=== PATIENT | female | born 1970 | race Caucasian/White ===

== ENCOUNTER 2020-05-04 01:47 | Inpatient (IN) | payer OTHER ==
[2020-05-04] MEDS ORDERED: SODIUM CHLORIDE 0.9% 500 ML 500 ML IV STA (02:02)
[2020-05-04] MEDS ORDERED: SODIUM CHLORIDE 0.9% 1,000 ML IV STA ×2 (02:02)
--- NOTE | 2020-05-04 02:04 | ED ---
Alcohol HPI - General Chief Complaint: Alcohol Stated Complaint: Altered Mental Status Time Seen by Provider: 05/04/20 02:01 Source: patient, EMS Mode of arrival: EMS Limitations: no limitations - Related Data Allergies Allergy/AdvReac Type Severity Reaction Status Date / Time No Known Allergies Allergy Verified 05/04/20 01:55 Review of Systems ROS Statement: Those systems with pertinent positive or pertinent negative responses have been documented in the HPI. ROS Other: All systems not noted in ROS Statement are negative. Past Medical History Past Medical History: No Reported History History of Any Multi-Drug Resistant Organisms: None Reported Past Surgical History: Section Past Psychological History: No Psychological Hx Reported Smoking Status: Current every day smoker Past Alcohol Use History: Abuse, Daily, Heavy Past Drug Use History: None Reported General Exam Limitations: no limitations Course Vital Signs 05/04/20 01:57 Temperature 97.9 F Pulse Rate 89 Respiratory 16 Rate Blood Pressure 136/81 O2 Sat by Pulse 100 Oximetry Medical Decision Making - Lab Data Result diagrams: 05/04/20 02:21 05/04/20 02:21 Lab Results 05/04/20 05/04/20 05/04/20 Range/Units 02:21 02:21 02:21 WBC 3.9 (3.8-10.6) k/uL RBC 3.33 L (3.80-5.40) m/uL Hgb 9.6 L (11.4-16.0) gm/dL Hct 29.4 L (34.0-46.0) % MCV 88.5 (80.0-100.0) fL MCH 28.9 (25.0-35.0) pg MCHC 32.7 (31.0-37.0) g/dL RDW 18.6 H (11.5-15.5) % Plt Count 80 L (150-450) k/uL MPV 9.5 Neutrophils % 67 % Lymphocytes % 20 % Monocytes % 7 % Eosinophils % 3 % Basophils % 0 % Neutrophils # 2.6 (1.3-7.7) k/uL Lymphocytes # 0.8 L (1.0-4.8) k/uL Monocytes # 0.3 (0-1.0) k/uL Eosinophils # 0.1 (0-0.7) k/uL Basophils # 0.0 (0-0.2) k/uL Hypochromasia Marked Anisocytosis Slight PT 11.1 (9.0-12.0) sec INR 1.0 (<1.2) APTT 23.8 (22.0-30.0) sec Sodium 133 L (137-145) mmol/L Potassium 3.7 (3.5-5.1) mmol/L Chloride 102 (98-107) mmol/L Carbon Dioxide 23 (22-30) mmol/L Anion Gap 8 mmol/L BUN 8 (7-17) mg/dL Creatinine 0.54 (0.52-1.04) mg/dL Est GFR (CKD-EPI)AfAm >90 (>60 ml/min/1.73 sqM) Est GFR (CKD-EPI)NonAf >90 (>60 ml/min/1.73 sqM) Glucose 86 (74-99) mg/dL Plasma Lactic Acid Otis (0.7-2.0) mmol/L Calcium 8.9 (8.4-10.2) mg/dL Phosphorus 4.3 (2.5-4.5) mg/dL Magnesium 1.6 (1.6-2.3) mg/dL Total Bilirubin 0.6 (0.2-1.3) mg/dL AST 56 H (14-36) U/L ALT 28 (4-34) U/L Alkaline Phosphatase 74 (38-126) U/L Creatine Kinase 64 (30-135) U/L Troponin I (0.000-0.034) ng/mL Total Protein 6.2 L (6.3-8.2) g/dL Albumin 3.7 (3.5-5.0) g/dL Lipase 180 (23-300) U/L Serum Alcohol <10 mg/dL Acetone, Qual Positive (Negative) 05/04/20 05/04/20 Range/Units 02:21 02:21 WBC (3.8-10.6) k/uL RBC (3.80-5.40) m/uL Hgb (11.4-16.0) gm/dL Hct (34.0-46.0) % MCV (80.0-100.0) fL MCH (25.0-35.0) pg MCHC (31.0-37.0) g/dL RDW (11.5-15.5) % Plt Count (150-450) k/uL MPV Neutrophils % % Lymphocytes % % Monocytes % % Eosinophils % % Basophils % % Neutrophils # (1.3-7.7) k/uL Lymphocytes # (1.0-4.8) k/uL Monocytes # (0-1.0) k/uL Eosinophils # (0-0.7) k/uL Basophils # (0-0.2) k/uL Hypochromasia Anisocytosis PT (9.0-12.0) sec INR (<1.2) APTT (22.0-30.0) sec Sodium (137-145) mmol/L Potassium (3.5-5.1) mmol/L Chloride (98-107) mmol/L Carbon Dioxide (22-30) mmol/L Anion Gap mmol/L BUN (7-17) mg/dL Creatinine (0.52-1.04) mg/dL Est GFR (CKD-EPI)AfAm (>60 ml/min/1.73 sqM) Est GFR (CKD-EPI)NonAf (>60 ml/min/1.73 sqM) Glucose (74-99) mg/dL Plasma Lactic Acid Otis 0.5 L (0.7-2.0) mmol/L Calcium (8.4-10.2) mg/dL Phosphorus (2.5-4.5) mg/dL Magnesium (1.6-2.3) mg/dL Total Bilirubin (0.2-1.3) mg/dL AST (14-36) U/L ALT (4-34) U/L Alkaline Phosphatase (38-126) U/L Creatine Kinase (30-135) U/L Troponin I <0.012 (0.000-0.034) ng/mL Total Protein (6.3-8.2) g/dL Albumin (3.5-5.0) g/dL Lipase (23-300) U/L Serum Alcohol mg/dL Acetone, Qual (Negative) - EKG Data -: EKG Interpreted by Me (EKG shows sinus rhythm 82 MN 128 QRS 84 QTc 474) Disposition Clinical Impression: Alcohol withdrawal delirium, Delirium, Medication reaction Disposition: [facility] Condition: Good Is patient prescribed a controlled substance at d/c from ED?: No Referrals: None,Stated [Primary Care Provider] - 1-2 days
[2020-05-04 02:47] LABS: Anisocytosis Slight; Basophils % (A) 0 %; Eosinophils # (A) 0.1 k/uL (0-0.7); Eosinophils % (A) 3 %; HCT 29.4 % (34.0-46.0); HGB 9.6 gm/dL (11.4-16.0); Hypochromasia Marked; Lymphocytes # (A) 0.8 k/uL (1.0-4.8); Lymphocytes % (A) 20 %; MCH 28.9 pg (25.0-35.0); MCHC 32.7 g/dL (31.0-37.0); MCV 88.5 fL (80.0-100.0); Mean Platelet Volume 9.5; Monocytes # (A) 0.3 k/uL (0-1.0); Monocytes % (A) 7 %; Neutrophils # (A) 2.6 k/uL (1.3-7.7); Neutrophils % (A) 67 %; RBC 3.33 m/uL (3.80-5.40); RDW 18.6 % (11.5-15.5); WBC 3.9 k/uL (3.8-10.6)
[2020-05-04 03:00] LABS: Platelet Count 80 k/uL (150-450)
[2020-05-04 03:01] LABS: ALT 28 U/L (4-34); AST 56 U/L (14-36); African American GFR (CKD) >90 (>60 ml/min/1.73 sqM); Albumin 3.7 g/dL (3.5-5.0); Alcohol <10 mg/dL; Alkaline Phosphatase 74 U/L (38-126); Anion Gap 8 mmol/L; Blood Urea Nitrogen 8 mg/dL (7-17); Calcium 8.9 mg/dL (8.4-10.2); Carbon Dioxide 23 mmol/L (22-30); Chloride 102 mmol/L (98-107); Creatine Kinase 64 U/L (30-135); Glucose 86 mg/dL (74-99); Lipase 180 U/L (23-300); Magnesium 1.6 mg/dL (1.6-2.3); Non-African American GFR(CKD) >90 (>60 ml/min/1.73 sqM); Phosphorus 4.3 mg/dL (2.5-4.5); Potassium 3.7 mmol/L (3.5-5.1); Sodium 133 mmol/L (137-145); Total Bilirubin 0.6 mg/dL (0.2-1.3); Total Protein 6.2 g/dL (6.3-8.2)
--- NOTE | 2020-05-04 03:07 | CT ---
EXAM: CT Head Without Intravenous Contrast CLINICAL HISTORY: ITS.REASON CT Reason: ams TECHNIQUE: Axial computed tomography images of the head/brain without intravenous contrast. CTDI is 49.27 mGy and DLP is 1141.4 mGy-cm. This CT exam was performed using one or more of the following dose reduction techniques: automated exposure control, adjustment of the mA and/or kV according to patient size, and/or use of iterative reconstruction technique. COMPARISON: No relevant prior studies available. FINDINGS: Brain: Unremarkable. No hemorrhage. No significant white matter disease. No edema. Ventricles: Unremarkable. No ventriculomegaly. Bones/joints: Unremarkable. No acute fracture. Soft tissues: Unremarkable. Sinuses: Unremarkable as visualized. No acute sinusitis. Mastoid air cells: Unremarkable as visualized. No mastoid effusion. IMPRESSION: No acute intracranial process.
[2020-05-04] MEDS ORDERED: DIAZEPAM 5 MG/ML 2 ML INJ IVP STA (03:19)
[2020-05-04 03:20] LABS: Partial Thromboplastin Time 23.8 sec (22.0-30.0); Prothrombin Time 11.1 sec (9.0-12.0)
[2020-05-04] MEDS ORDERED: diphenhydrAMINE 2% CREAM 28.4 GM TUBE TOPICAL STA (03:42)
[2020-05-04] MEDS ORDERED: LORazepam 2 MG/ML INJ IV STA ×2 (04:05→04:29)
[2020-05-04] MEDS ORDERED: THIAMINE 100 MG/ML 2 ML VIAL IM STA ×2 (04:29→11:17)
[2020-05-04] MEDS ORDERED: PHENobarbital SODIUM 130 MG/ML 1 ML VIAL IM STA (04:29)
[2020-05-04] MEDS ORDERED: NALOXONE 0.4 MG/ML 1 ML VIAL IV PRN (04:30)
[2020-05-04] MEDS ORDERED: ONDANSETRON 4 MG/2 ML VIAL IVP PRN (04:30)
[2020-05-04] MEDS ORDERED: diphenhydrAMINE 50 MG/ML 1 ML VIAL IVP STA (05:20)
[2020-05-04] MEDS ORDERED: ZIPRASIDONE 20 MG VIAL IM ONE (05:30)
[2020-05-04] MEDS ORDERED: HALOPERIDOL LACTATE 5 MG/ML 1 ML VIAL IM PRN (11:17)
[2020-05-04] MEDS ORDERED: LORazepam 2 MG/ML INJ IV PRN ×3 (11:17)
[2020-05-04] MEDS ORDERED: HYDROcodone/APAP 5-325MG 1 EACH TAB PO PRN (12:44)
[2020-05-04] MEDS ORDERED: TEMAZEPAM 15 MG CAP PO PRN (12:44)
--- NOTE | 2020-05-04 13:59 | P.CN ---
Psychiatric Consult - . Consult date: 05/04/20 Consult:: IDENTIFYING DATA: This patient is a single, unemployed 50-year-old female admitted for altered mental status REASON FOR CONSULT: Altered Mental Status HISTORY OF PRESENT ILLNESS: At this time, it is difficult to obtain a clear history from this patient. This provider attempted to obtain collateral information from the patient's mother and boyfriend but has been unable to as he is only able to reach voicemail. The patient was reportedly at [facility] for alcohol rehab but began acting strangely and was subsequent transferred to this emergency department. The patient reports that she was drinking anywhere from a pint to a half gallon of hard liquor daily and abruptly stopped her alcohol use 04/30/2020. The patient has been noted to be agitated and altered while in the ED requiring multiple IM medications. CIWA scores of 19 and 30. The patient reported a history of previous withdrawal symptoms including tremors but denied any previous history of hallucinations. She is currently endorsing visual hallucinations. She states that she sees a shopping cart in front of her by the curtains. She does not report any auditory hallucinations. She denies any suicidal or homicidal ideation, intention, and/or plan. She is unable to provide any further history due to being altered. PAST PSYCHIATRIC HISTORY: Unable to obtain at this time. The patient's home medications include trazodone and Catapres. PAST MEDICAL HISTORY: Past Medical History: No Reported History History of Any Multi-Drug Resistant Organisms: None Reported Past Surgical History: Section Past Psychological History: No Psychological Hx Reported Smoking Status: Current every day smoker Past Alcohol Use History: Abuse, Daily, Heavy Past Drug Use History: None Reported ALLERGIES: as per EMR. CHEMICAL DEPENDENCY HISTORY: The patient reports that she has been drinking a pint to a half gallon of hard liquor and abruptly stopped drinking on 04/30/2020. Unable to obtain any further chemical dependency history. FAMILY PSYCHIATRIC/SUBSTANCE USE HISTORY: Unable to obtain at this time. SOCIAL HISTORY: Unable to obtain at this time. MENTAL STATUS EXAM: General Appearance: Patient appears malaised, dressed in a hospital gown, and is unable to cooperate despite attempting to. Behavior: Patient is lying down in bed with mild tremor of her upper extremities. Speech: Patient's speech is nonspontaneous, low in volume, incoherent. Mood/Affect: Unable to assess mood. Affect is malaised. Suicidality/Homicidality: Patient denies having any suicidal or homicidal ideation intent or plan. Perceptions: Patient endorses visual hallucinations but no auditory hallucinations. Though content/process: Unable to assess. Patient is grossly disorganized. Memory and concentration: Patient is alert and oriented to person and place only. Concentration is poor. Judgment and insight: Very Poor Vital Signs Temp 97.9 F 05/04/20 01:57 Pulse 110 H 05/04/20 05:00 Resp 18 05/04/20 05:00 BP 118/92 05/04/20 05:00 Pulse Ox 97 05/04/20 05:00 Intake & Output 05/03/20 05/04/20 05/04/20 18:59 06:59 18:59 Weight 61.235 kg IMPRESSIONS: Altered mental status - Likely from severe alcohol withdrawal with Delirium Tremens. - Patient's onset of visual hallucinations and delirium are consistent with DTs as the patient reported abruptly stopping alcohol this past Sunday. CIWA scores are elevated 19-30. Vitals with tachycardia. PLAN: -At this time patient DOES [NOT] meet criteria for inpatient psychiatric admission. -Recommend ICU or medical admission for severe Alcohol Withdrawal. -Would recommend the following medication changes/additions: Start Librium 50 mg 4 times daily for alcohol withdrawal. Continue CIWA protocol with ativan PRN. Continue Thiamine, start multivitamin 05/04/20 13:31
--- NOTE | 2020-05-04 14:10 | XR ---
EXAMINATION TYPE: XR chest 1V portable DATE OF EXAM: 05/04/2020 COMPARISON: None INDICATION: Pneumonia TECHNIQUE: Single frontal view of the chest is obtained. FINDINGS: The heart size is normal. The pulmonary vasculature is normal. The lungs are clear. IMPRESSION: 1. No acute pulmonary process.
--- NOTE | 2020-05-04 14:12 | HP ---
HISTORY AND PHYSICAL DATE OF SERVICE: 05/04/2020 CHIEF COMPLAINT: Change in mental status and alcohol. HISTORY OF PRESENT ILLNESS: This 50-year-old woman with a past medical history of no significant medical issues except a section being followed by no primary physician in the outpatient setting had significant issues with alcohol. The patient apparently taking large quantity of alcohol and the patient was admitted with change in mental status. The patient was acutely delirious. The patient is on CIWA protocol. Despite CIWA protocol, the patient was combative, restless, and the patient was given Geodon and Haldol was also being planned. Psychiatric consultation in progress at this time. The initial evaluation with hemoglobin 9.6 and platelets 80. Otherwise, the CT of the brain was also done which shows no acute intracranial process. COVID-19 was negative, but serum acetone was positive indicating alcoholic ketoacidosis. Patient admitted for further evaluation and treatment. There is no history of any fever. Detailed history cannot be taken from the patient because of change in mental status, most of the history taken by my discussion with staff and as well as review of the chart at this time. PAST MEDICAL HISTORY: History of section. MEDICATIONS: Medications are per chart: 1. Trazodone. 2. Chlor-Trimeton. 3. Catapres. 4. Motrin. 5. Tylenol. 6. Zofran. 7. Multivitamins. Doses are reviewed. ALLERGIES: None. FAMILY HISTORY, SOCIAL HISTORY AND REVIEW OF SYSTEMS: Could not be taken because of change in mental status. PHYSICAL EXAMINATION: Patient is stuporous, arousable, confused. Pulse 110, blood pressure 118/92, respiration 18, temperature 97.9, pulse ox 97% on room air. HEENT: Conjunctivae normal. Oral mucosa moist. NECK: No jugular venous distention. No carotid bruit. No lymph node enlargement. CARDIOVASCULAR: S1, S2 muffled. No S3, no S4. RESPIRATORY: Breath sounds diminished at the bases. A few rhonchi, no crackles. ABDOMEN: Soft, nontender. LEGS: No edema, no swelling. NERVOUS SYSTEM: A full exam cannot be done. Mild diffuse tremors present. SKIN: No ulcer, rash or bleeding. JOINTS: No active deforming arthropathy. LABS: WBC 3.9, hemoglobin 9.6 and sodium is 133, potassium 3.7, and COVID-19 is negative. Other labs are noted. ASSESSMENT: 1. Change in mental status acute metabolic encephalopathy secondary from alcohol intoxication. 2. Acute delirium tremens. 3. Hyponatremia. 4. Thrombocytopenia. 5. Elevated AST, possibly secondary to alcoholic hepatitis. 6. Anemia possibly secondary to nutritional anemia. 7. History of section. RECOMMENDATIONS AND DISCUSSION: This 50-year-old woman who presented with multiple complex medical issues, we will continue to monitor the patient. We will continue the CIWA protocol. Currently the patient is slightly less agitated after the Geodon. I would recommend Halniraj p.r.n. Psychiatric consultation. If the CIWA protocol remains, the patient might need to be transferred to ICU for further close monitoring at this time. Otherwise, supplementary medications ordered and home medication will be reviewed and I would also recommend a chest x-ray to complete the workup and repeat labs will be ordered. The patient also possibly had mild alcoholic hepatitis also please also had. Once again, the prognosis guarded. Further recommendations to follow. MMBARBIL / IJN: [id number] /
[2020-05-04] MEDS ORDERED: SODIUM CHLORIDE 0.9% 1,000 ML with MVI, ADULT NO.4 WITH VIT K 10 ML, THIAMINE 100 MG, F... IV ONE ×4 (15:00)
[2020-05-04] MEDS ORDERED: PHENobarbitaL 16.2 MG TAB PO ONE ×2 (16:30→20:30)
[2020-05-04] MEDS: THIAMINE 100 MG TAB PO SCH ×2 (17:36→17:37)
[2020-05-04] MEDS: PANTOPRAZOLE 40 MG/10 ML VIAL IVP SCH (17:36)
[2020-05-04] MEDS: DEXTROSE 5%-0.45% NACL 1,000 ML IV SCH (17:36)
[2020-05-04] MEDS: chlordiazePOXIDE 25 MG CAP PO SCH (20:05)
[2020-05-04] MEDS: HEPARIN SODIUM,PORCINE 5,000 UNIT/ML 1 ML VIAL SQ SCH (20:06)
[2020-05-05] MEDS: chlordiazePOXIDE 25 MG CAP PO SCH ×3 (00:12→12:54)
[2020-05-05] MEDS: DEXTROSE 5%-0.45% NACL 1,000 ML IV SCH ×2 (02:29→13:55)
[2020-05-05 04:42] LABS: Appearance,Urine Clear (Clear); Bacteria,Urine Occasional /hpf; Bilirubin,Urine Negative (Negative); Blood,Urine Negative (Negative); Color,Urine Light Yellow; Glucose,Urine (UA) Negative (Negative); Ketones,Urine Negative (Negative); Leukocyte Esterase,Urine Moderate (Negative); Mucus,Urine Rare /hpf; Nitrite,Urine Positive (Negative); Protein,Urine Negative (Negative); RBC,Urine 1 /hpf (0-5); Specific Gravity,Urine 1.007 (1.001-1.035); Squamous Epithelial Cell,Urine 1 /hpf (0-4); Urobilinogen,Urine <2.0 mg/dL (<2.0); WBC,Urine 19 /hpf (0-5)
[2020-05-05 05:08] LABS: Amphetamine Screen,Urine Not Detected (NotDetected); Barbiturate Screen,Urine Not Detected (NotDetected); Benzodiazepines Screen,Urine Detected (NotDetected); Cocaine Screen,Urine Not Detected (NotDetected); Methadone Screen, Urine Not Detected (NotDetected); Opiate Screen,Urine Not Detected (NotDetected); Oxycodone Screen, Urine Not Detected (NotDetected); Phencyclidine Screen,Urine Not Detected (NotDetected); Tricyclic Antidepressant,Urine Not Detected (NotDetected); Urn Cannabinoid Scrn Not Detected (NotDetected)
[2020-05-05 07:11] LABS: ALT 31 U/L (4-34); AST 63 U/L (14-36); African American GFR (CKD) >90 (>60 ml/min/1.73 sqM); Albumin/Globulin Ratio 1.2; Alkaline Phosphatase 63 U/L (38-126); Anion Gap 7 mmol/L; Blood Urea Nitrogen 5 mg/dL (7-17); Calcium 8.4 mg/dL (8.4-10.2); Carbon Dioxide 24 mmol/L (22-30); Chloride 104 mmol/L (98-107); Globulin 2.5 g/dL; Glucose 103 mg/dL (74-99); Magnesium 1.6 mg/dL (1.6-2.3); Non-African American GFR(CKD) >90 (>60 ml/min/1.73 sqM); Potassium 3.8 mmol/L (3.5-5.1); Sodium 135 mmol/L (137-145); Total Bilirubin 0.4 mg/dL (0.2-1.3); Total Protein 5.5 g/dL (6.3-8.2)
[2020-05-05] MEDS ORDERED: MULTIVITAMINS, THERA 1 EACH TAB PO SCH (09:00)
[2020-05-05] MEDS: HEPARIN SODIUM,PORCINE 5,000 UNIT/ML 1 ML VIAL SQ SCH (09:40)
[2020-05-05] MEDS: THIAMINE 100 MG TAB PO SCH ×2 (09:41→12:57)
[2020-05-05] MEDS: PANTOPRAZOLE 40 MG/10 ML VIAL IVP SCH (09:41)
[2020-05-05] MEDS ORDERED: NICOTINE 14MG/24HR PATCH TRANSDERM SCH (10:30)
[2020-05-05 11:38] VITALS: BP 122/78; PULSE 85; RESP 20; TEMP 98.5
[2020-05-05 12:10] LABS: Basophils # (A) 0.03 X 10*3/uL (0.00-0.10); Basophils % (A) 0.7 %; Eosinophils # (A) 0.12 X 10*3/uL (0.04-0.35); Eosinophils % (A) 2.9 %; HCT 29.6 % (37.2-46.3); HGB 8.6 g/dL (12.0-15.0); Lymphocytes # (A) 0.99 X 10*3/uL (0.90-5.00); Lymphocytes % (A) 23.5 %; MCHC 29.1 g/dL (32.0-37.0); MCV 93.1 fL (80.0-97.0); Mean Platelet Volume 12.4 fL (9.5-12.2); Monocytes # (A) 0.44 X 10*3/uL (0.20-1.00); Monocytes % (A) 10.5 %; Neutrophils # (A) 2.61 X 10*3/uL (1.80-7.70); Neutrophils % (A) 61.9 %; Platelet Count 89 X 10*3/uL (140-440); RBC 3.18 X 10*6/uL (4.10-5.20); RDW 19.4 % (11.5-14.5); WBC 4.21 X 10*3/uL (4.50-10.00)
--- NOTE | 2020-05-05 13:41 | P.PN ---
Progress Note - Text Progress Note Date: 05/05/20 Interval History: Patient was seen at bedside. The patient is reporting is feeling much better. She is currently alert and oriented in all spheres. She is calm and cooperative during the interview and is able to respond to questions appropriately. She reports that she was able to sleep well and reports a decent appetite. She is currently not reporting any suicidal or homicidal ideation, intention, and/or plan. She is denying any auditory or visual hallucinations. She denies any paranoia or other delusions. She reports that she has a desire to quit alcohol and has been trying to go to [facility] for rehabilitation. Mental Status Exam: General Appearance: Patient appears to be stated age is alert, directable, and cooperative. Fair hygiene and grooming. Behavior: Patient is calmly seated in bed without any agitated behavior. Speech: Patient's speech is fluent and nonpressured. Mood/Affect: Mood is "feeling a lot better," affect is congruent, euthymic, and with appropriate range. Suicidality/Homicidality: Patient denies having any suicidal or homicidal ideation intent or plan. Perceptions: Patient denies any visual hallucinations and denies any auditory hallucinations Though content/process: There is no evidence of any delusional thought content and thought process is linear and goal-directed. Memory and concentration: AOX3, grossly intact for the purposes of this session Judgment and insight: Improved Assessment Alcohol use disorder Plan: -At this time patient DOES NOT meet criteria for inpatient psychiatric admission. -Stable for discharge from a psychiatric standpoint. Patient at this time does not present with immediate risk of harm to self or others. She is at chronically higher risk of self harm compared to the general population due to her heavy alcohol use. -Psychiatry will sign off at this point. Thank you for this consult.
--- NOTE | 2020-05-06 10:18 | DS ---
DISCHARGE SUMMARY DATE OF SERVICE: 05/05/2020 FINAL DIAGNOSES: 1. Change in mental status and acute metabolic encephalopathy secondary to alcohol intoxication. 2. Acute delirium tremens. 3. Hyponatremia. 4. Thrombocytopenia. 5. Elevated AST, possibly secondary to alcoholic hepatitis. 6. Anemia possibly secondary to nutrition anemia. 7. History of section. DISCHARGE DISPOSITION: The patient will be discharged in stable condition with guarded prognosis. HISTORY OF PRESENT ILLNESS: This 50-year-old woman with a past medical history of multiple medical problems admitted with change in mental status and alcohol intoxication, delirium tremens, treated symptomatically. Patient improved significantly. Psychiatry saw the patient. On exam, vitals are stable. CARDIOVASCULAR: S1, S2 muffled. ABDOMEN: Soft. NERVOUS SYSTEM: No focal deficits. Labs are reviewed and recommend close followup in the outpatient setting. Hemoglobin is 8.6. DISCHARGE ADVICE: 1. Diet is cardiac. 2. Activity limited until followup. 3. Follow up with Dr. Kramer in 1 week. 4. No EtOH. 5. Follow up labs CBC, BMP in the outpatient setting. Medications are: 1. Chlorpheniramine as mentioned earlier. 2. Motrin p.r.n. 3. Multivitamins 1 p.o. daily. 4. Tigan p.r.n. 5. Trazodone 50-150 mg p.o. daily. 6. Tylenol p.r.n. 7. Zofran 8 mg p.r.n. 8. Catapres 0.1 p.o. b.i.d. 9. Folic acid 1 mg p.o. daily. 10.Librium 50 mg t.i.d. 11.Thiamine 100 mg p.o. daily. Once again, the patient will be discharged in a stable condition with guarded prognosis. MMODL / IJN: [id number] /
== END 2020-05-05 14:00 | disposition home or self-care (01) | DRG 896 ==
LOC: EC 01:47 → 5NMEDONC 04:30
PROVIDERS: ADMIT Hospitalist; ATTEND Hospitalist
DX: F10.231 Alcohol dependence with withdrawal delirium (principal); G93.41 Metabolic encephalopathy; E87.1 Hypo-osmolality and hyponatremia; E87.2 Acidosis; Z20.822 Contact with and (suspected) exposure to COVID-19; D69.6 Thrombocytopenia, unspecified; F10.229 Alcohol dependence with intoxication, unspecified; K70.10 Alcoholic hepatitis without ascites; D64.9 Anemia, unspecified; F17.200 Nicotine dependence, unspecified, uncomplicated; Z98.891 History of uterine scar from previous surgery
CPT/HCPCS: 36415; 70450; 71045; 80053; 80306; 80320; 81001; 82009; 82550; 83605; 83690; 83735; 84100; 84484; 85025; 85610; 85730; 87635; 93005; 96361; 96372; 96374; 96375; 99285

== ENCOUNTER 2021-08-25 22:04 | Emergency (ER) | payer OTHER ==
[2021-08-25 22:08] VITALS: BP 147/91; PULSE 97; RESP 18; TEMP 97.5
--- NOTE | 2021-08-25 22:41 | ED ---
Abdominal Pain HPI - General Chief Complaint: Abdominal Pain Stated Complaint: Bloating, diarrhea Time Seen by Provider: 08/25/21 22:11 Source: patient, family, RN notes reviewed Mode of arrival: ambulatory Limitations: no limitations - History of Present Illness Initial Comments: Patient is a 51-year-old female presents to the emergency room with complaints of worsening abdominal swelling. She reports that she was under the impression that she was possibly significantly constipated however she reports having regular bowel movements including bowel movements that are both solid and diarrhea at times. She is taking MiraLAX daily along with laxatives as needed and has noticed no improvement in her abdominal girth which is slowly increasin g. She states that approximately 2 months ago she lost some weight and then approximately one month ago her belly slowly started to get a cure. She does report drinking daily hard liquor approximately apparent height to a fifth a day including her last drink today of 1 pint of liquor. She reports that she had a brother from hepatic failure secondary to alcoholism. She states that he approximately 4 years ago and she is aware that she has been drinking daily since his . She has attempted to quit drinking in the past few going to [place] but has been unsuccessful. She does admit to having mild yellowing of her skin. She denies any peripheral edema, nausea or vomiting. She reports that her belly feels full at times and that her swollen belly often causes her to become short of breath with significant activities and become fatigued easily. She has never been advised that she has any hepatic failure or cirrhosis of her liver; she has been advised to quit drinking in the past.she denies any other significant past medical history and is not taking any medications on a regular basis. - Related Data Home Medications Medication Instructions Recorded Confirmed Acetaminophen [Tylenol 8 Hour] 650 mg PO Q4H PRN MDD 6 TAB 05/04/20 05/04/20 Chlorpheniramine Maleate 4 mg PO Q4H PRN 05/04/20 05/04/20 [Chlor-Trimeton] Ibuprofen [Motrin] 600 mg PO Q6HR PRN 05/04/20 05/04/20 Multivitamins, Thera [Multivitamin 1 tab PO DAILY 05/04/20 05/04/20 (formulary)] Trimethobenzamide HCl [Tigan] 300 mg PO Q6H PRN 05/04/20 05/04/20 Zofran 2mg/Ml 4 mg IM Q6H PRN 05/04/20 05/04/20 ondansetron HCL [Zofran] 8 mg PO Q6H PRN 05/04/20 05/04/20 traZODone HCL 50 - 150 mg PO HS 05/04/20 05/04/20 Previous Rx's Medication Instructions Recorded Folic Acid 1 mg PO DAILY #30 tablet 05/05/20 Thiamine [Vitamin B-1] 100 mg PO DAILY #30 tablet 05/05/20 chlordiazePOXIDE HCl [Librium] 50 mg PO TID #90 cap 05/05/20 cloNIDine HCL [Catapres] 0.1 mg PO BID #60 tab 05/05/20 Allergies Allergy/AdvReac Type Severity Reaction Status Date / Time No Known Allergies Allergy Verified 08/25/21 22:08 Review of Systems ROS Statement: Those systems with pertinent positive or pertinent negative responses have been documented in the HPI. ROS Other: All systems not noted in ROS Statement are negative. Past Medical History Past Medical History: No Reported History History of Any Multi-Drug Resistant Organisms: None Reported Past Surgical History: Section Past Anesthesia/Blood Transfusion Reactions: No Reported Reaction Past Psychological History: No Psychological Hx Reported Smoking Status: Current every day smoker Past Alcohol Use History: Abuse, Daily, Heavy Past Drug Use History: Marijuana General Exam Limitations: no limitations General appearance: alert, in no apparent distress Head exam: Present: atraumatic, normocephalic, normal inspection Eye exam: Present: normal appearance, PERRL, EOMI. Absent: scleral icterus, conjunctival injection, periorbital swelling ENT exam: Present: normal exam, mucous membranes moist Neck exam: Present: normal inspection. Absent: tenderness, meningismus, lymphadenopathy Respiratory exam: Present: normal lung sounds bilaterally. Absent: respiratory distress, wheezes, rales, rhonchi, stridor Cardiovascular Exam: Present: regular rate, normal rhythm, normal heart sounds. Absent: systolic murmur, diastolic murmur, rubs, gallop, clicks GI/Abdominal exam: Present: distended, normal bowel sounds. Absent: tenderness Expanded GI/Abdominal exam: Present: ascites Rectal exam: Present: deferred Extremities exam: Present: normal inspection. Absent: pedal edema, joint swelling, calf tenderness Back exam: Present: normal inspection Neurological exam: Present: alert, oriented X3, CN II-XII intact Psychiatric exam: Present: normal affect, normal mood Skin exam: Present: other (abdominal wall skin yellowed no diffuse jaundice) Course Vital Signs 08/25/21 22:05 Temperature 97.5 F L Pulse Rate 97 Respiratory 18 Rate Blood Pressure 147/91 O2 Sat by Pulse 99 Oximetry Medical Decision Making - Medical Decision Making Ascites noted with known EtOH; no previous diagnosis of hepatic failure; will check CT of the abdomen and pelvis with contrast. Will check CMP CBC, amylase, lipase, PT INR along with ammonia level. Given interference with daily activities need for paracentesis is possible though not needed urgently; no acute distress on exam. She denies any nausea or vomiting no antiemetic need at this time. Abdominal pain persists. Significant electrolyte derangement noted hypokalemia a t 3.1 to be replaced orally with 40 mEq of potassium. alkaline phosphatase elevated at 421 and lactic acid elevated at 2.3 consistent with her EtOH. Case discussed with Dr. Bailey awaiting computed tomography scan prior to discharge will likely plan for discharge home with oral Ativan for withdrawal symptoms and follow up with GI. Admission considered in case discussed with Dr. Diaz. Awaiting computed tomography scan probable discharge home with outpatient follow-up with computed tomography scan normal. Computed tomography scan with multiple anomalies that were discussed with patient by Dr. Bailey observation stay recommended to be completed with Dr. Diaz who the case was previously discussed with and patient chose to leave AGAINST MEDICAL ADVICE instead of staying for admission for further evaluation and workup for abdominal pain. - Lab Data Result diagrams: 08/25/21 22:55 08/25/21 22:55 Lab Results 08/25/21 08/25/21 08/25/21 Range/Units 22:55 22:55 22:55 WBC 5.0 (3.8-10.6) k/uL RBC 3.40 L (3.80-5.40) m/uL Hgb 11.0 L (11.4-16.0) gm/dL Hct 36.5 (34.0-46.0) % MCV 107.5 H (80.0-100.0) fL MCH 32.3 (25.0-35.0) pg MCHC 30.1 L (31.0-37.0) g/dL RDW 14.5 (11.5-15.5) % Plt Count 75 L (150-450) k/uL MPV 9.1 Neutrophils % 69 % Lymphocytes % 23 % Monocytes % 5 % Eosinophils % 1 % Basophils % 0 % Neutrophils # 3.5 (1.3-7.7) k/uL Lymphocytes # 1.2 (1.0-4.8) k/uL Monocytes # 0.3 (0-1.0) k/uL Eosinophils # 0.0 (0-0.7) k/uL Basophils # 0.0 (0-0.2) k/uL Manual Slide Review Performed Hypochromasia Marked Poikilocytosis (manual Present Macrocytosis Moderate PT 13.1 H (9.0-12.0) sec INR 1.2 H (<1.2) Sodium 143 (137-145) mmol/L Potassium 3.1 L (3.5-5.1) mmol/L Chloride 106 (98-107) mmol/L Carbon Dioxide 28 (22-30) mmol/L Anion Gap 9 mmol/L BUN 2 L (7-17) mg/dL Creatinine 0.54 (0.52-1.04) mg/dL Est GFR (CKD-EPI)AfAm >90 (>60 ml/min/1.73 sqM) Est GFR (CKD-EPI)NonAf >90 (>60 ml/min/1.73 sqM) Glucose 88 (74-99) mg/dL Lactic Ac Sepsis Rflx Plasma Lactic Acid Otis (0.7-2.0) mmol/L Calcium 8.1 L (8.4-10.2) mg/dL Total Bilirubin 1.1 (0.2-1.3) mg/dL AST 180 H (14-36) U/L ALT 40 H (4-34) U/L Alkaline Phosphatase 421 H (38-126) U/L Ammonia (<30) umol/L Total Protein 6.7 (6.3-8.2) g/dL Albumin 3.1 L (3.5-5.0) g/dL Amylase 40 (30-110) U/L Lipase 358 H (23-300) U/L 08/25/21 08/26/21 Range/Units 22:55 00:08 WBC (3.8-10.6) k/uL RBC (3.80-5.40) m/uL Hgb (11.4-16.0) gm/dL Hct (34.0-46.0) % MCV (80.0-100.0) fL MCH (25.0-35.0) pg MCHC (31.0-37.0) g/dL RDW (11.5-15.5) % Plt Count (150-450) k/uL MPV Neutrophils % % Lymphocytes % % Monocytes % % Eosinophils % % Basophils % % Neutrophils # (1.3-7.7) k/uL Lymphocytes # (1.0-4.8) k/uL Monocytes # (0-1.0) k/uL Eosinophils # (0-0.7) k/uL Basophils # (0-0.2) k/uL Manual Slide Review Hypochromasia Poikilocytosis (manual Macrocytosis PT (9.0-12.0) sec INR (<1.2) Sodium (137-145) mmol/L Potassium (3.5-5.1) mmol/L Chloride (98-107) mmol/L Carbon Dioxide (22-30) mmol/L Anion Gap mmol/L BUN (7-17) mg/dL Creatinine (0.52-1.04) mg/dL Est GFR (CKD-EPI)AfAm (>60 ml/min/1.73 sqM) Est GFR (CKD-EPI)NonAf (>60 ml/min/1.73 sqM) Glucose (74-99) mg/dL Lactic Ac Sepsis Rflx Y Plasma Lactic Acid Otis 2.3 H* (0.7-2.0) mmol/L Calcium (8.4-10.2) mg/dL Total Bilirubin (0.2-1.3) mg/dL AST (14-36) U/L ALT (4-34) U/L Alkaline Phosphatase (38-126) U/L Ammonia 15 (<30) umol/L Total Protein (6.3-8.2) g/dL Albumin (3.5-5.0) g/dL Amylase (30-110) U/L Lipase (23-300) U/L - Radiology Data Radiology results: report reviewed, image reviewed CT abdomen and pelvis with contrast impression: Findings concerning for pain col itis which may be infectious or inflammatory etiology. Hepatomegaly and hepatic steatosis with moderate amount of ascites and splenomegaly considering for portal hypertension. Possible antral gastritis. There is an intussusception within the short segment of the small bowel. Multiple areas of low attenuated aparicio in the lumbar spine. The differential diagnosis is include metastatic cysts, multiple myeloma and lymphoma. Recommend MRI of the lumbar spine for further evaluation. Disposition Clinical Impression: Ascites Disposition: Left Against Medical Advice Condition: Stable Instructions (If sedation given, give patient instructions): Cirrhosis (ED), Alcohol Withdrawal (ED), Ascites (ED) Is patient prescribed a controlled substance at d/c from ED?: Yes When asked, does pt state using other controlled substances?: Yes If prescribed controlled substance>3 days was MAPS reviewed?: Prescribed <3 Days Referrals: None,Stated [Primary Care Provider] - 1-2 days Kori Sloan MD [STAFF PHYSICIAN] - 1-2 days Time of Disposition: 01:45
[2021-08-25 23:17] LABS: Basophils % (A) 0 %; Eosinophils % (A) 1 %; HCT 36.5 % (34.0-46.0); Hypochromasia Marked; Lymphocytes # (A) 1.2 k/uL (1.0-4.8); Lymphocytes % (A) 23 %; MCH 32.3 pg (25.0-35.0); MCHC 30.1 g/dL (31.0-37.0); MCV 107.5 fL (80.0-100.0); Macrocytosis Moderate; Mean Platelet Volume 9.1; Monocytes # (A) 0.3 k/uL (0-1.0); Monocytes % (A) 5 %; Neutrophils # (A) 3.5 k/uL (1.3-7.7); Neutrophils % (A) 69 %; RDW 14.5 % (11.5-15.5)
[2021-08-25 23:19] LABS: INR 1.2 (<1.2); Prothrombin Time 13.1 sec (9.0-12.0)
[2021-08-25 23:28] LABS: ALT 40 U/L (4-34); AST 180 U/L (14-36); African American GFR (CKD) >90 (>60 ml/min/1.73 sqM); Albumin 3.1 g/dL (3.5-5.0); Alkaline Phosphatase 421 U/L (38-126); Amylase 40 U/L (30-110); Anion Gap 9 mmol/L; Blood Urea Nitrogen 2 mg/dL (7-17); Calcium 8.1 mg/dL (8.4-10.2); Carbon Dioxide 28 mmol/L (22-30); Chloride 106 mmol/L (98-107); Glucose 88 mg/dL (74-99); Lipase 358 U/L (23-300); Non-African American GFR(CKD) >90 (>60 ml/min/1.73 sqM); Potassium 3.1 mmol/L (3.5-5.1); Sodium 143 mmol/L (137-145); Total Bilirubin 1.1 mg/dL (0.2-1.3); Total Protein 6.7 g/dL (6.3-8.2)
[2021-08-25] MEDS ORDERED: POTASSIUM CHLORIDE ER 20 MEQ TAB.ER PO STA (23:56)
[2021-08-26 00:06] LABS: Lactic Acid, Venous 2.3 mmol/L (0.7-2.0)
[2021-08-26 00:19] LABS: Poikilocytosis (M) Present
[2021-08-26 00:20] LABS: Platelet Count 75 k/uL (150-450)
--- NOTE | 2021-08-26 01:07 | CT ---
EXAM: CT Abdomen and Pelvis With Intravenous Contrast CLINICAL HISTORY: ITS.REASON CT Reason: abdominal pain TECHNIQUE: Axial computed tomography images of the abdomen and pelvis with intravenous contrast. CTDI is 15.77 mGy and DLP is 795 mGy-cm. This CT exam was performed using one or more of the following dose reduction techniques: automated exposure control, adjustment of the mA and/or kV according to patient size, and/or use of iterative reconstruction technique. COMPARISON: No relevant prior studies available. FINDINGS: Lung bases: Unremarkable. No mass. No consolidation. ABDOMEN: Liver: The liver is enlarged with hepatic steatosis in areas of sparing. There is a moderate amount of ascites around the hepatic capsule. There is a small fluid attenuation lesion adjacent to the gallbladder fossa. Gallbladder and bile ducts: There is a small amount of fluid around the gallbladder.. No calcified stones. No ductal dilation. Pancreas: Unremarkable. No mass. No ductal dilation. Spleen: Splenomegaly. Adrenals: Unremarkable. No mass. Kidneys and ureters: Unremarkable. No solid mass. No hydronephrosis. Stomach and bowel: There is thickening and edema of the gastric antral wall. No obstruction. No mucosal thickening. There is thickening and edema of the ascending, transverse, descending and sigmoid colon wall. There is a fatty intussusception in a short segment of small bowel (series 201 image 54). PELVIS: Appendix: No findings to suggest acute appendicitis. Bladder: Unremarkable. No mass. Reproductive: Unremarkable as visualized. ABDOMEN and PELVIS: Intraperitoneal space: Unremarkable. No free air. There is a moderate amount of ascites throughout the peritoneal cavity. Bones/joints: There are multiple areas of low attenuation in the lumbar spine. No acute fracture. No dislocation. Soft tissues: Unremarkable. Vasculature: Unremarkable. No abdominal aortic aneurysm. Lymph nodes: Unremarkable. No enlarged lymph nodes. IMPRESSION: Findings concerning for pancolitis, which may be infectious or inflammatory etiologies. Hepatomegaly and hepatic steatosis with a moderate amount of ascites and splenomegaly concerning for portal hypertension. Possible antral gastritis. There is an intussusception within a short segment of small bowel. Multiple areas of low attenuation in the lumbar spine. The differential diagnosis includes metastases, myeloma and lymphoma. Recommend MRI of the lumbar spine for further evaluation.
== END 2021-08-26 01:43 | disposition left against medical advice (07) ==
LOC: EC 22:04
DX: R18.8 Other ascites (principal); E87.6 Hypokalemia; F17.200 Nicotine dependence, unspecified, uncomplicated; Z53.29 Procedure and treatment not carried out because of patient's decision for other reasons
CPT/HCPCS: 36415 ×2; 80053; 82140; 82150; 83605; 83690; 85025; 85610; 74177; 99284; Q9967

== ENCOUNTER → 2021-10-04 | Outpatient (CLI) | payer OTHER ==
--- NOTE | 2021-10-05 09:27 | MM ---
Reason for Exam: Screening (asymptomatic). Patient History: Menarche at age 15. First Full-Term at age 23. Perimenopausal. Risk Values: Priscila 5 year model risk: 0.8%. NCI Lifetime model risk: 8.2%. Tissue Density: The breast tissue is extremely dense which could obscure a lesion on mammography. Findings: Analyzed By CAD. Benign vascular calcifications are present. Faint segmental calcifications in the anterior right 9:00 position are present. MLO view this may be associated with a round nodule not clearly identified on the craniocaudal view. Additional workup of this finding is recommended. Cranial caudal and mediolateral oblique rotation compression views with standard right mediolateral view is recommended. Left breast appears without suspicious secondary changes for malignancy. Overall Assessment: Incomplete: need additional imaging evaluation, BI-RAD 0 Management: Diagnostic Mammogram of the right breast. A negative mammogram report should not preclude additional follow up of suspicious palpable abnormalities. Patient should continue monthly self breast exam. A clinical breast exam by your physician is recommended on an annual basis and results should be correlated with mammographic findings. Electronically signed and approved by: Car Cameron D.O. Radiologis
== END | disposition home or self-care (01) ==
LOC: RADMAMWWP 13:56
PROVIDERS: ATTEND Family Medicine
DX: Z12.31 Encounter for screening mammogram for malignant neoplasm of breast (principal)
CPT/HCPCS: 77067

== ENCOUNTER 2022-04-19 12:58 | Emergency (ER) | payer OTHER ==
[2022-04-19] MEDS ORDERED: THIAMINE 100 MG/ML 2 ML VIAL IVP STA (13:05)
[2022-04-19] MEDS ORDERED: SODIUM CHLORIDE 0.9% 1,000 ML IV ONE (13:05)
--- NOTE | 2022-04-19 13:10 | ED ---
General Adult HPI - General Stated complaint: AMS Time Seen by Provider: 04/19/22 13:00 Source: EMS, RN notes reviewed, old records reviewed Mode of arrival: EMS Limitations: altered mental status - History of Present Illness Initial comments: Patient is a 52-year-old female presenting to the emergency department for change in mental status. Patient is unresponsive and provides no history. EMS provides history. Patient was recently in the hospital, old chart review. Patient has liver failure. Patient reportedly has been with decreased oral intake and activity progressive since discharge 5 days ago. Patient has not gotten out of bed today. Patient is unresponsive at this time and provides no history. Per EMS the has considered hospice however they have not met hospice yet - Related Data Home Medications Medication Instructions Recorded Confirmed Budesonide/Formoterol Fumarate 2 puff INHALATION RT-BID 04/05/22 04/19/22 [Symbicort 160-4.5 Mcg Inhaler] Folic Acid 1 mg PO DAILY 04/05/22 04/19/22 Ibuprofen [Motrin] 800 mg PO Q8H PRN 04/05/22 04/19/22 LORazepam [Ativan] 0.5 mg PO HS PRN 04/19/22 04/19/22 Ondansetron [Zofran] 4 mg PO Q6H PRN 04/19/22 04/19/22 Previous Rx's Medication Instructions Recorded Furosemide [Lasix] 40 mg PO DAILY #30 tab 04/14/22 Lactulose [Cephulac] 30 gm PO TID #90 ml 04/14/22 Magnesium Oxide [Mag-Ox] 400 mg PO BID #60 tab 04/14/22 Spironolactone [Aldactone] 100 mg PO DAILY #30 tab 04/14/22 Thiamine [Vitamin B-1] 100 mg PO DAILY #60 tab 04/14/22 methIMAzole [Tapazole] 10 mg PO DAILY #30 tab 04/14/22 polyethylene glycoL 3350 [Miralax] 17 gm PO TID BETWEEN MEALS #527 gm 04/14/22 Allergies Allergy/AdvReac Type Severity Reaction Status Date / Time trazodone AdvReac Confusion Verified 04/19/22 14:13 Review of Systems ROS Statement: Those systems with pertinent positive or pertinent negative responses have been documented in the HPI. ROS Other: All systems not noted in ROS Statement are negative. Limitations: ROS unobtainable due to patients medical condition Neurological: Reports: confusion Past Medical History Past Medical History: No Reported History History of Any Multi-Drug Resistant Organisms: None Reported Past Surgical History: Section Past Anesthesia/Blood Transfusion Reactions: No Reported Reaction Past Psychological History: No Psychological Hx Reported Smoking Status: Current every day smoker Past Alcohol Use History: Abuse, Daily, Heavy Past Drug Use History: Marijuana General Exam Limitations: altered mental status, physical limitation General appearance: lethargic Head exam: Present: atraumatic Eye exam: Present: normal appearance, PERRL, scleral icterus ENT exam: Present: normal oropharynx Neck exam: Present: normal inspection Respiratory exam: Present: rhonchi Cardiovascular Exam: Present: regular rate, normal rhythm Expanded Peripheral pulses: 2+: Radial (R), Radial (L), Dorsalis Pedis (R), Dorsalis Pedis (L) GI/Abdominal exam: Present: soft, normal bowel sounds. Absent: distended, tenderness, guarding, rebound, rigid, pulsatile mass Extremities exam: Present: normal inspection Neurological exam: Present: altered Expanded Neurological exam: Present: protecting the airway Eye Response: (1) no response Motor Response: (4) withdraws to pain (All extremities) Verbal Response: (1) no verbal response Psychiatric exam: Present: other (Nonverbal) Skin exam: Present: other (Marked jaundice appearance) Course Vital Signs 04/19/22 04/19/22 04/19/22 13:03 13:15 13:35 Temperature 96.7 F L Pulse Rate 75 72 73 Respiratory 14 17 20 Rate Blood Pressure 104/42 104/39 106/41 O2 Sat by Pulse 99 98 97 Oximetry 04/19/22 04/19/22 04/19/22 13:50 14:00 14:20 Temperature Pulse Rate 70 70 69 Respiratory 16 17 17 Rate Blood Pressure 87/35 94/40 91/38 O2 Sat by Pulse 98 98 99 Oximetry 04/19/22 04/19/22 04/19/22 14:40 15:00 15:10 Temperature Pulse Rate 70 71 75 Respiratory 17 19 20 Rate Blood Pressure 90/36 94/36 102/37 O2 Sat by Pulse 99 99 93 L Oximetry EKG Findings - EKG Results: EKG: interpreted by ERMD, sinus rhythm, normal axis, normal QRS, normal ST/T Medical Decision Making - Medical Decision Making Was pt. sent in by a medical professional or institution (, [employer], TRAINING AND DOCUMENTATION SPECIALIST, urgent care, hospital, or shelter...) When possible be specific @ -No Did you speak to anyone other than the patient for history (EMS, parent, family, police, friend...)? What history was obtained from this source @ -Family arrived later and helps provide history Did you review nursing and triage notes (agree or disagree)? Why? @ -I reviewed and agree with nursing and triage notes Were old charts reviewed (outside hosp., previous admission, EMS record, old EKG, old radiological studies, urgent care reports/EKG's, shelter records)? Report findings @ Differential Diagnosis (chest pain, altered mental status, abdominal pain women, abdominal pain men, vaginal bleeding, weakness, fever, dyspnea, syncope, headache, dizziness, GI bleed, back pain, seizure, CVA, palpatations, mental health)? @ --Differential Altered Mental Status: Hypoglycemia, DKA, hypercapnia, ETOH, overdose, CO poisoning, trauma, myxedema coma, HTN encephalopathy, infection, encephalitis, psychosis, intercranial hemorrhage, hepatic encephalopathy, meningitis, CVA, this is not meant to be an all-inclusive list EKG interpreted by me (3pts min.). @ -As above X-rays interpreted by me (1pt min.). @ -Chest x-ray shows no acute process CT interpreted by me (1pt min.). @ -Report reviewed U/S interpreted by me (1pt. min.). @ -None done What testing was considered but not performed or refused? (CT, X-rays, U/S, labs)? Why? @ -None What meds were considered but not given or refused? Why? @ -None Did you discuss the management of the patient with other professionals (professionals i.e. , GRA[employer]ON, TRAINING AND DOCUMENTATION SPECIALIST, lab, RT, psych nurse, nursing home social worker, inside wireman, teacher, security public safety officer, cyanide case hardener)? Give summary @ -Care was discussed with cyanide case hardener who will help establish hospice Was smoking cessation discussed for >3mins.? @ -No Was critical care preformed (if so, how long)? @ -No Were there social determinants of health that impacted care today? How? (Homelessness, low income, unemployed, alcoholism, drug addiction, transportation, low edu. Level, literacy, decrease access to med. care, usp, rehab)? @ -No Was there de-escalation of care discussed even if they declined (Discuss DNR or withdrawal of care, Hospice)? DNR status @ -No What co-morbidities impacted this encounter? (DM, HTN, Smoking, COPD, CAD, Cancer, CVA, ARF, Chemo, Hep., AIDS, mental health diagnosis, sleep apnea, morbid obesity)? @ -Liver failure Was patient admitted / discharged? Hospital course, mention meds given and route, prescriptions, significant lab abnormalities, going to OR and other pertinent info. @ -Patient reevaluated and unchanged. Sonali is present as well as both children. They are updated regarding patient's poor condition. They have previously had discussions regarding this. They all do wish to have patient go home. They're all in agreement. They're made aware that she could and likely will within the next one to 2 days. They do want hospice consult and this being done. Case was discussed with Dr. Peacock. Dr. Peacock is in agreement that patient is very poor condition and should be considered a hospice candidate. Undiagnosed new problem with uncertain prognosis? @ -No Drug Therapy requiring intensive monitoring for toxicity (Heparin, Nitro, Insulin, Cardizem)? @ -No Were any procedures done? @ -No Diagnosis/symptom? @ -Hepatic encephalopathy, liver failure, acute kidney injury, hyponatremia Acute, or Chronic, or Acute on Chronic? @ -Acute, chronic, acute, acute Uncomplicated (without systemic symptoms) or Complicated (systemic symptoms)? @ -default Side effects of treatment? @ -No Exacerbation, Progression, or Severe Exacerbation? @ -No Poses a threat to life or bodily function? How? (Chest pain, USA, CT, pneumonia, PE, COPD, DKA, ARF, appy, cholecystitis, CVA, Diverticulitis, Homicidal, Suicidal, threat to staff... and all critical care pts) @ -No - Lab Data Result diagrams: 04/19/22 13:12 04/19/22 13:12 Lab Results 04/19/22 04/19/22 04/19/22 Range/Units 13:12 13:12 13:12 WBC 14.2 H (3.8-10.6) k/uL RBC 2.08 L (3.80-5.40) m/uL Hgb 7.4 L D (11.4-16.0) gm/dL Hct 22.2 L (34.0-46.0) % MCV 106.3 H D (80.0-100.0) fL MCH 35.4 H (25.0-35.0) pg MCHC 33.3 (31.0-37.0) g/dL RDW 15.6 H (11.5-15.5) % Plt Count 101 L D (150-450) k/uL MPV 12.5 Neutrophils % 83 % Lymphocytes % 6 % Monocytes % 7 % Eosinophils % 0 % Basophils % 0 % Neutrophils # 11.7 H (1.3-7.7) k/uL Lymphocytes # 0.8 L (1.0-4.8) k/uL Monocytes # 1.0 (0-1.0) k/uL Eosinophils # 0.0 (0-0.7) k/uL Basophils # 0.0 (0-0.2) k/uL Macrocytosis Moderate PT 18.3 H (9.0-12.0) sec INR 1.9 H (<1.2) APTT 29.4 (22.0-30.0) sec Sodium (137-145) mmol/L Potassium (3.5-5.1) mmol/L Chloride (98-107) mmol/L Carbon Dioxide (22-30) mmol/L Anion Gap mmol/L BUN (7-17) mg/dL Creatinine (0.52-1.04) mg/dL Est GFR (CKD-EPI)AfAm (>60 ml/min/1.73 sqM) Est GFR (CKD-EPI)NonAf (>60 ml/min/1.73 sqM) Glucose (74-99) mg/dL Calcium (8.4-10.2) mg/dL Total Bilirubin (0.2-1.3) mg/dL AST (14-36) U/L ALT (4-34) U/L Alkaline Phosphatase (38-126) U/L Ammonia (<30) umol/L Troponin I (0.000-0.034) ng/mL Total Protein (6.3-8.2) g/dL Albumin (3.5-5.0) g/dL Urine Color Urine Appearance (Clear) Urine pH (5.0-8.0) Ur Specific [place] (1.001-1.035) Urine Protein (Negative) Urine Glucose (UA) (Negative) Urine Ketones (Negative) Urine Blood (Negative) Urine Nitrite (Negative) Urine Bilirubin (Negative) Urine Urobilinogen (<2.0) mg/dL Ur Leukocyte Esterase (Negative) Urine RBC (0-5) /hpf Urine WBC (0-5) /hpf Ur Squamous Epith Cells (0-4) /hpf Urine Bacteria (None) /hpf Hyaline Casts (0-2) /lpf Urine Mucus (None) /hpf Urine Opiates Screen Not Detected (NotDetected) Ur Oxycodone Screen Not Detected (NotDetected) Urine Methadone Screen Not Detected (NotDetected) Ur Propoxyphene Screen Not Detected (NotDetected) Ur Barbiturates Screen Not Detected (NotDetected) U Tricyclic Antidepress Not Detected (NotDetected) Ur Phencyclidine Scrn Not Detected (NotDetected) Ur Amphetamines Screen Not Detected (NotDetected) U Methamphetamines Scrn Not Detected (NotDetected) U Benzodiazepines Scrn Detected H (NotDetected) Urine Cocaine Screen Not Detected (NotDetected) U Marijuana (THC) Screen Not Detected (NotDetected) Serum Alcohol mg/dL 04/19/22 04/19/22 04/19/22 Range/Units 13:12 13:12 13:12 WBC (3.8-10.6) k/uL RBC (3.80-5.40) m/uL Hgb (11.4-16.0) gm/dL Hct (34.0-46.0) % MCV (80.0-100.0) fL MCH (25.0-35.0) pg MCHC (31.0-37.0) g/dL RDW (11.5-15.5) % Plt Count (150-450) k/uL MPV Neutrophils % % Lymphocytes % % Monocytes % % Eosinophils % % Basophils % % Neutrophils # (1.3-7.7) k/uL Lymphocytes # (1.0-4.8) k/uL Monocytes # (0-1.0) k/uL Eosinophils # (0-0.7) k/uL Basophils # (0-0.2) k/uL Macrocytosis PT (9.0-12.0) sec INR (<1.2) APTT (22.0-30.0) sec Sodium 118 L* (137-145) mmol/L Potassium 5.0 (3.5-5.1) mmol/L Chloride 86 L (98-107) mmol/L Carbon Dioxide 17 L (22-30) mmol/L Anion Gap 15 mmol/L BUN 98 H (7-17) mg/dL Creatinine 7.48 H* (0.52-1.04) mg/dL Est GFR (CKD-EPI)AfAm 7 (>60 ml/min/1.73 sqM) Est GFR (CKD-EPI)NonAf 6 (>60 ml/min/1.73 sqM) Glucose 79 (74-99) mg/dL Calcium 7.2 L (8.4-10.2) mg/dL Total Bilirubin 18.3 H* (0.2-1.3) mg/dL AST 138 H (14-36) U/L ALT 65 H (4-34) U/L Alkaline Phosphatase 163 H (38-126) U/L Ammonia (<30) umol/L Troponin I <0.012 (0.000-0.034) ng/mL Total Protein 5.4 L (6.3-8.2) g/dL Albumin 2.1 L (3.5-5.0) g/dL Urine Color Dark [place] Urine Appearance Cloudy H (Clear) Urine pH 5.5 (5.0-8.0) Ur Specific [place] 1.017 (1.001-1.035) Urine Protein Trace H (Negative) Urine Glucose (UA) Negative (Negative) Urine Ketones Negative (Negative) Urine Blood Moderate H (Negative) Urine Nitrite Negative (Negative) Urine Bilirubin 3+ H (Negative) Urine Urobilinogen <2.0 (<2.0) mg/dL Ur Leukocyte Esterase Negative (Negative) Urine RBC 21 H (0-5) /hpf Urine WBC 28 H (0-5) /hpf Ur Squamous Epith Cells 10 H (0-4) /hpf Urine Bacteria Rare H (None) /hpf Hyaline Casts 29 H (0-2) /lpf Urine Mucus Occasional H (None) /hpf Urine Opiates Screen (NotDetected) Ur Oxycodone Screen (NotDetected) Urine Methadone Screen (NotDetected) Ur Propoxyphene Screen (NotDetected) Ur Barbiturates Screen (NotDetected) U Tricyclic Antidepress (NotDetected) Ur Phencyclidine Scrn (NotDetected) Ur Amphetamines Screen (NotDetected) U Methamphetamines Scrn (NotDetected) U Benzodiazepines Scrn (NotDetected) Urine Cocaine Screen (NotDetected) U Marijuana (THC) Screen (NotDetected) Serum Alcohol <10 mg/dL 04/19/22 Range/Units 13:12 WBC (3.8-10.6) k/uL RBC (3.80-5.40) m/uL Hgb (11.4-16.0) gm/dL Hct (34.0-46.0) % MCV (80.0-100.0) fL MCH (25.0-35.0) pg MCHC (31.0-37.0) g/dL RDW (11.5-15.5) % Plt Count (150-450) k/uL MPV Neutrophils % % Lymphocytes % % Monocytes % % Eosinophils % % Basophils % % Neutrophils # (1.3-7.7) k/uL Lymphocytes # (1.0-4.8) k/uL Monocytes # (0-1.0) k/uL Eosinophils # (0-0.7) k/uL Basophils # (0-0.2) k/uL Macrocytosis PT (9.0-12.0) sec INR (<1.2) APTT (22.0-30.0) sec Sodium (137-145) mmol/L Potassium (3.5-5.1) mmol/L Chloride (98-107) mmol/L Carbon Dioxide (22-30) mmol/L Anion Gap mmol/L BUN (7-17) mg/dL Creatinine (0.52-1.04) mg/dL Est GFR (CKD-EPI)AfAm (>60 ml/min/1.73 sqM) Est GFR (CKD-EPI)NonAf (>60 ml/min/1.73 sqM) Glucose (74-99) mg/dL Calcium (8.4-10.2) mg/dL Total Bilirubin (0.2-1.3) mg/dL AST (14-36) U/L ALT (4-34) U/L Alkaline Phosphatase (38-126) U/L Ammonia 136 H (<30) umol/L Troponin I (0.000-0.034) ng/mL Total Protein (6.3-8.2) g/dL Albumin (3.5-5.0) g/dL Urine Color Urine Appearance (Clear) Urine pH (5.0-8.0) Ur Specific [place] (1.001-1.035) Urine Protein (Negative) Urine Glucose (UA) (Negative) Urine Ketones (Negative) Urine Blood (Negative) Urine Nitrite (Negative) Urine Bilirubin (Negative) Urine Urobilinogen (<2.0) mg/dL Ur Leukocyte Esterase (Negative) Urine RBC (0-5) /hpf Urine WBC (0-5) /hpf Ur Squamous Epith Cells (0-4) /hpf Urine Bacteria (None) /hpf Hyaline Casts (0-2) /lpf Urine Mucus (None) /hpf Urine Opiates Screen (NotDetected) Ur Oxycodone Screen (NotDetected) Urine Methadone Screen (NotDetected) Ur Propoxyphene Screen (NotDetected) Ur Barbiturates Screen (NotDetected) U Tricyclic Antidepress (NotDetected) Ur Phencyclidine Scrn (NotDetected) Ur Amphetamines Screen (NotDetected) U Methamphetamines Scrn (NotDetected) U Benzodiazepines Scrn (NotDetected) Urine Cocaine Screen (NotDetected) U Marijuana (THC) Screen (NotDetected) Serum Alcohol mg/dL Disposition Clinical Impression: Hyponatremia, Liver failure, Hypertensive encephalopathy, Acute renal failure (ARF) Disposition: HOME SELF-CARE Instructions (If sedation given, give patient instructions): Altered Mental Status (ED) Additional Instructions: Hospice nurse will be contacting you. Please return if needed or change in thoughts regarding patient's care. Is patient prescribed a controlled substance at d/c from ED?: No Referrals: Brooks Peacock MD [Primary Care Provider] - 1-2 days Time of Disposition: 15:36
[2022-04-19 13:11] VITALS: TEMP 96.7
[2022-04-19 13:41] LABS: ALT 65 U/L (4-34); AST 138 U/L (14-36); Albumin 2.1 g/dL (3.5-5.0); Alcohol <10 mg/dL; Alkaline Phosphatase 163 U/L (38-126); Anion Gap 15 mmol/L; Blood Urea Nitrogen 98 mg/dL (7-17); Calcium 7.2 mg/dL (8.4-10.2); Carbon Dioxide 17 mmol/L (22-30); Chloride 86 mmol/L (98-107); Glucose 79 mg/dL (74-99); Total Protein 5.4 g/dL (6.3-8.2)
[2022-04-19 13:42] VITALS: RESP 20
[2022-04-19 13:46] LABS: Basophils % (A) 0 %; Eosinophils % (A) 0 %; HCT 22.2 % (34.0-46.0); HGB 7.4 gm/dL (11.4-16.0); Lymphocytes # (A) 0.8 k/uL (1.0-4.8); Lymphocytes % (A) 6 %; MCH 35.4 pg (25.0-35.0); MCHC 33.3 g/dL (31.0-37.0); MCV 106.3 fL (80.0-100.0); Macrocytosis Moderate; Mean Platelet Volume 12.5; Monocytes % (A) 7 %; Neutrophils # (A) 11.7 k/uL (1.3-7.7); Neutrophils % (A) 83 %; RBC 2.08 m/uL (3.80-5.40); RDW 15.6 % (11.5-15.5); WBC 14.2 k/uL (3.8-10.6)
[2022-04-19 13:50] LABS: Platelet Count 101 k/uL (150-450)
[2022-04-19 13:58] LABS: INR 1.9 (<1.2); Partial Thromboplastin Time 29.4 sec (22.0-30.0); Prothrombin Time 18.3 sec (9.0-12.0)
[2022-04-19 14:02] LABS: African American GFR (CKD) 7 (>60 ml/min/1.73 sqM); Non-African American GFR(CKD) 6 (>60 ml/min/1.73 sqM)
[2022-04-19 14:03] LABS: Sodium 118 mmol/L (137-145)
[2022-04-19 14:05] LABS: Appearance,Urine Cloudy (Clear); Bacteria,Urine Rare /hpf; Bilirubin,Urine 3+ (Negative); Blood,Urine Moderate (Negative); Color,Urine Dark Orange; Glucose,Urine (UA) Negative (Negative); Hyaline Casts,Urine 29 /lpf (0-2); Ketones,Urine Negative (Negative); Leukocyte Esterase,Urine Negative (Negative); Mucus,Urine Occasional /hpf; Nitrite,Urine Negative (Negative); PH, Urine 5.5 (5.0-8.0); Protein,Urine Trace (Negative); RBC,Urine 21 /hpf (0-5); Specific Gravity,Urine 1.017 (1.001-1.035); Squamous Epithelial Cell,Urine 10 /hpf (0-4); Urobilinogen,Urine <2.0 mg/dL (<2.0); WBC,Urine 28 /hpf (0-5)
[2022-04-19 14:07] LABS: Total Bilirubin 18.3 mg/dL (0.2-1.3)
[2022-04-19 14:08] LABS: Amphetamine Screen,Urine Not Detected (NotDetected); Barbiturate Screen,Urine Not Detected (NotDetected); Benzodiazepines Screen,Urine Detected (NotDetected); Cocaine Screen,Urine Not Detected (NotDetected); Methadone Screen, Urine Not Detected (NotDetected); Opiate Screen,Urine Not Detected (NotDetected); Oxycodone Screen, Urine Not Detected (NotDetected); Phencyclidine Screen,Urine Not Detected (NotDetected); Tricyclic Antidepressant,Urine Not Detected (NotDetected); Urn Cannabinoid Scrn Not Detected (NotDetected)
[2022-04-19] MEDS ORDERED: SODIUM CHLORIDE 0.9% 1,000 ML IV STA (14:10)
[2022-04-19] MEDS ORDERED: LACTULOSE 200 GM/300 ML (FROM 1/2 GAL JUG) RECTAL ONE (14:15)
--- NOTE | 2022-04-19 14:16 | CT ---
EXAMINATION TYPE: CT brain wo con DATE OF EXAM: 04/19/2022 HISTORY: Altered mental status. CT DLP: 1090.4 mGycm. Automated Exposure Control for Dose Reduction was Utilized. TECHNIQUE: CT scan of the head is performed without contrast. COMPARISON: CT brain April 07, 2022. FINDINGS: There is no acute intracranial hemorrhage or midline shift identified. There is mild diff use ventricular and sulcal prominence redemonstrated. Slightly more prominent sulcal effacement over the bilateral frontal lobes is redemonstrated. Tracy-white matter differentiation is preserved. The g lobes are intact and the visualized sinuses are clear. IMPRESSION: No acute intracranial hemorrhage or midline shift. There is mild diffuse cerebral atro phy redemonstrated. No significant change from most recent prior CT.
--- NOTE | 2022-04-19 15:12 | XR ---
EXAMINATION TYPE: XR chest 1V portable DATE OF EXAM: 04/19/2022 COMPARISON: NONE HISTORY: Altered mental status TECHNIQUE: Single frontal view of the chest is obtained. FINDINGS: There is no focal air space opacity, pleural effusion, or pneumothorax seen. The cardiac silhouette size is within normal limits. The osseous structures are intact. IMPRESSION: No acute process.
[2022-04-19 15:13] VITALS: BP 102/37; PULSE 75
[2022-04-19] MEDS ORDERED: LACTULOSE 200 GM/300 ML (FROM 1/2 GAL JUG) RECTAL SCH (16:00)
--- NOTE | 2022-04-20 17:36 | HP ---
HISTORY AND PHYSICAL CHIEF COMPLAINT: Lethargy, cirrhosis, and alcoholism. HISTORY OF PRESENT ILLNESS: This 52-year-old white female alcoholic was just discharged from the hospital several days ago. The family wanted to take her home to provide her with end of life care. They, however, brought her back to the emergency room on the , where she was found to be extremely lethargic and nearly moribund. In the emergency room, she had laboratory studies including a sodium of 123, BUN 67, creatinine 5.76, GFR 8, white count 15,400 with a hemoglobin of 8.7 and platelet count of 79,000. Her calcium was low at 8.1, and her bilirubin was up to 26.1 with an AST of 99, an ALT of 51, and an alkaline phosphatase of 194. Her ammonia level was 117. She was to be admitted for terminal care, referred to Hospice, and to be made DNR. History was unobtainable. PHYSICAL EXAMINATION: GENERAL: Physical exam was performed in the emergency room, where she was deeply jaundiced and semi-comatose. CHEST: Clear. CARDIAC: Normal. ABDOMEN: Distended with ascites. DIAGNOSES: She is admitted to the hospital with diagnoses of: 1. End-stage cirrhosis. 2. Acute renal failure. 3. Leukocytosis. 4. Thrombocytopenia. 5. Hyperammonemia. 6. Hypocalcemia. 7. Hepatic encephalopathy. PLAN: Bedrest with Hospice referral. HESHAM / CHIQUI: [id number] /
--- NOTE | 2022-04-20 17:42 | DS ---
DISCHARGE SUMMARY CHIEF COMPLAINT: End-stage liver disease with cirrhosis. HISTORY OF PRESENT ILLNESS AND PHYSICAL EXAMINATION: Details of this lady's history and physical can be found in the initial workup. LABORATORY STUDIES: While she was in the hospital, she had laboratory studies, details of which can be found in the laboratory section of her chart. COURSE IN THE HOSPITAL: After admission, she was placed on bedrest and started on intravenous fluids. However, just after she was admitted, the family decided that they would once again try to care for her at home, and she was discharged from the emergency room. FINAL DIAGNOSES: 1. End-stage cirrhosis. 2. Hepatic encephalopathy. 3. Chronic alcoholism. 4. Acute renal failure. 5. Leukocytosis. 6. Anemia. 7. Thrombocytopenia. 8. Hyperammonemia. OPERATIONS: None. CONSULTATIONS: None. HESHAM / CHIQUI: [id number] /
== END 2022-04-19 18:00 | disposition home or self-care (01) ==
LOC: EC 12:58
DX: E87.1 Hypo-osmolality and hyponatremia (principal); I67.4 Hypertensive encephalopathy; K72.90 Hepatic failure, unspecified without coma; N17.9 Acute kidney failure, unspecified; I10 Essential (primary) hypertension; F17.200 Nicotine dependence, unspecified, uncomplicated; F12.90 Cannabis use, unspecified, uncomplicated; Z79.899 Other long term (current) drug therapy; Z91.018 Allergy to other foods
CPT/HCPCS: 99285; 96374; 96361 ×5; 36415; 93005; 80053; 82140; 84484; 85025; 85610; 85730; 81001; 80306; 87086; 71045; 70450; G0480; J3411; 80320